=== PATIENT | female | born 1960 | race Caucasian/White ===

== ENCOUNTER 2020-03-25 07:50 | Inpatient (IN) | payer OTHER, SELFPAY ==
[~2020-03-25] VITALS: Ht 167.6 cm; Wt 111.8 kg
--- NOTE | 2020-03-25 08:10 | NUR ---
Placed in room 06 . Placed on playground monitor, blood pressure machine and pulse oximeter. To gown for exam. Side rails up.
--- NOTE | 2020-03-25 08:15 | NUR ---
Patient presented to ER C/O bilat leg edema & SOB. Patient Ambulatory to ER, A&Ox4, afebrile, bilat lower lwg 3+ edema, pain 08/16, denies N/V/D. Patient placed on instructor bridge & pulse-ox monitor and EKG complete, will continue to monitor
[2020-03-25 08:19] VITALS: BP_SYST 167
--- NOTE | 2020-03-25 08:44 | NUR ---
RT at bedside
--- NOTE | 2020-03-25 08:45 | NUR ---
ER Dr. CHRISTINA at bedside examining patient.
[2020-03-25] MEDS ORDERED: NITROGLYCERIN 1 INCH (GM) OINT. TP ONE (09:00)
[2020-03-25] MEDS ORDERED: KETOROLAC TROMETHAMINE 30 MG VIAL IVP ONE (09:00)
[2020-03-25] MEDS ORDERED: FUROSEMIDE 40 MG/4 ML VIAL IVP ONE (09:00)
[2020-03-25 09:11] LABS: BILIRUBIN,URINE 1+ (NEGATIVE); BLOOD, URINE 2+ (NEGATIVE); COLOR,URINE YELLOW (YELLOW); GLUCOSE,URINE NEGATIVE (NEGATIVE); KETONES,URINE TRACE (NEGATIVE); LEUKOCYTE ESTERASE ,URINE TRACE (NEGATIVE); NITRITE, URINE NEGATIVE (NEGATIVE); PH,URINE 6.5 (5.0-8.0); PROTEIN URINE 1+ (NEGATIVE)
[2020-03-25 09:12] LABS: UROBILINOGEN,URINE >=8 (0.2-1.0)
[2020-03-25 09:18] LABS: CLARITY/URINE SLIGHTLY CLOUDY (CLEAR)
[2020-03-25 09:22] LABS: BACTERIA,URINE FEW /HPF (None Seen); WBC,URINE 0-3 /HPF (0-3)
[2020-03-25 09:26] LABS: BASOPHILS % (AUTO) 0.4 % (0.0-2.0); EOSINOPHILS % (AUTO) 0.2 % (0.0-4.0); HEMATOCRIT 24.2 % (36-48); HEMOGLOBIN 7.2 g/dL (12.0-16.0); LYMPHOCYTES # (AUTO) 0.9 K/uL (1.0-5.5); MEAN CORPUSCULAR HEMOGLOBIN 22 pg (27-31); MEAN CORPUSCULAR HGB CONC 30 % (32-36); MEAN CORPUSCULAR VOLUME 74 fL (79.0-98.0); MONOCYTES # (AUTO) 0.9 K/uL (0.0-1.0); MONOCYTES % (AUTO) 13.2 % (1.7-9.3); NEUTROPHILS # (AUTO) 4.9 K/uL (1.8-7.7); NEUTROPHILS % (AUTO) 73.2 % (40.0-70.0); PLATELET COUNT (AUTO) 95 K/uL (130-430); RED BLOOD CELL COUNT(AUTO) 3.28 MIL/uL (4.2-6.2); RED CELL DISTRIBUTION WIDTH 23.8 % (9.0-15.0); WHITE BLOOD COUNT (AUTO) 6.6 K/uL (4.8-10.8)
--- NOTE | 2020-03-25 09:50 | NUR ---
PT AMBULATORY TO RESTROOM
--- NOTE | 2020-03-25 09:53 | NUR ---
Jak araceli in ED - 03/25/20 at 1001 by SDEDTD Patient presented to ER C/O bilat leg edema & SOB. Patient Ambulatory to ER, A&Ox4, afebrile, bilat lower lwg 3+ edema, pain 08/16, denies N/V/D. Patient placed on client finance analyst & pulse-ox monitor and EKG complete, will continue to monitor
--- NOTE | 2020-03-25 10:30 | NUR ---
PT AMBULATORY TO RESTROOM
[2020-03-25 10:36] LABS: C-REACTIVE PROTEIN QUANT 0.8 mg/dL (0-0.5)
[2020-03-25 10:37] LABS: INR 1.6 (0.8-1.2); PROTHROMBIN TIME 15.7 SECS (9.5-12.5)
[2020-03-25 10:43] LABS: ALBUMIN 2.1 g/dL (3.4-4.8); CALCIUM 8.5 mg/dL (8.4-11.0); CREATININE 0.73 mg/dL (0.55-1.30); POTASSIUM 3.5 mmol/L (3.5-5.1); TOTAL BILIRUBIN 2.5 mg/dL (0.0-1.0)
[2020-03-25 10:58] LABS: FIBRINOGEN 157 mg/dL (200-400)
--- NOTE | 2020-03-25 11:20 | NUR ---
ADMIT ORDERS FROM DR. RIVERA
[2020-03-25] MEDS ORDERED: LACTULOSE 20 GM/30 ML UDC PO ONE (11:30)
--- NOTE | 2020-03-25 11:30 | NUR ---
REQUESTED BED FROM [facility] AREA MANAGER
[2020-03-25 11:31] LABS: CKMB RELATIVE INDEX 3.5 (0.0-2.9); CREATINE KINASE MB 21.9 ng/mL (0-3.6)
--- NOTE | 2020-03-25 11:54 | NUR ---
Obtain consent for blood transfusion.
--- NOTE | 2020-03-25 12:35 | NUR ---
PT SITTING UP IN PAZ A&OX4
--- NOTE | 2020-03-25 13:15 | NUR ---
Rapid covid test sent to lab
[2020-03-25] MEDS ORDERED: IPRATROPIUM BROM 0.5 MG/2.5 ML VIAL.NEB (ATROVENT) INH PRN (13:45)
[2020-03-25] MEDS ORDERED: ALBUTEROL SULFATE 0.083% 2.5 MG/3 ML VIAL.NEB INH PRN (13:45)
--- NOTE | 2020-03-25 13:52 | NUR ---
Patient will be admitted to care of DR RIVERA. Admitted to TELE unit. Will go to room 120B. Belongings list completed. Complete and up to date summary report printed. SBAR report to be given at bedside with opportunity for questions. Transfer to TELE via ACLS protocol. Licensed nurse present. IV present no signs or symptoms of infiltration.
--- NOTE | 2020-03-25 14:04 | NUR ---
ADMISSION NOTE Received patient from ER via tracey, received report from JANKI LOZANO. Patient admitted with diagnosis of CIRRHOSIS/RULE OUT COVID 19. Patient oriented to hospital routine, call light, toileting and safety-patient verbalized understanding.
[2020-03-25 14:23] VITALS: BP_SYST 141
[2020-03-25 14:30] VITALS: BP_SYST 141
--- NOTE | 2020-03-25 14:35 | NUR ---
CONSULTATION REASON FOR CONSULT: LIZZY R/O TANNER CONSULTING PHYS: ANALISA ORDERED BY NICOLE [employer] IS COVERING [phone] PAGED
[2020-03-25] MEDS: cefTRIAXone 1 GM in D5W 50 ML IV SCH (15:27)
[2020-03-25] MEDS: AZITHROMYCIN 500 MG in NS 250 ML IV SCH (15:47)
--- NOTE | 2020-03-25 16:00 | NUR ---
Note Pt was admitted - admission assessment completed. Pt was given medications as ordered at this time. IV in right forearm 22g' intact and patent infusing IVPB at this time. Pt was instructed that she will be NPO. Pt given BSC - pt had Lactulose PO on arrival to floor. Pt has tele unit attached and intact on admission to floor. No needs noted at this time. Call light within reach.
[2020-03-25 16:03] VITALS: BP_SYST 141
--- NOTE | 2020-03-25 18:00 | NUR ---
Note Pt resting in bed with IVPB antibiotic infusing. No SOB/resp distress or pain/discomfort noted at this time. Tele unit attached and intact. Pt was checked on q1' and PRN all shift for needs and care. Pt was maintained with safety and isolation precautions. Pt's bed in low position all shift. No needs noted at this time. Call light within reach. Pt stable at this time. Pt on her cellphone all shift.
--- NOTE | 2020-03-25 18:25 | NUR ---
Note Pt's IVPB antibiotics completed at this time. IV in right forearm saline locked at this time.
--- NOTE | 2020-03-25 19:30 | NUR ---
REPORT Report received by day nurse, patient is aox4, on 02 2L NC, sinus rhythm in the heart monitor, fall and safety measures in place.
[2020-03-25] MEDS: ALBUTEROL SULFATE 0.083% 2.5 MG/3 ML VIAL.NEB INH SCH (20:23)
[2020-03-25] MEDS: IPRATROPIUM BROM 0.5 MG/2.5 ML VIAL.NEB (ATROVENT) INH SCH (20:23)
[2020-03-25 21:00] VITALS: BP_SYST 139
--- NOTE | 2020-03-25 21:25 | NUR ---
RN ROUNDS/BLOOD TRANSFUSION Patient awake, aox4, on 02 2L NC, no sob noted, vital signs stable, patient denies any nausea or pain at this time, IV line to right forearm intact and patent, saline locked, plan of care discussed with patient, started on 1 unit of PRBC, consent signed, patient had no reaction from first 15 min of blood transfusion. Vitals remained stable, oriented to call light for nurse assistance, fall and safety measures in place.
--- NOTE | 2020-03-25 22:43 | NUR ---
RN ROUNDS Patient resting quietly in bed, no sob noted, blood transfusion continues to infuse, call light within reach, safety and fall precautions in place.
[2020-03-26] VITALS: BP_SYST 131
--- NOTE | 2020-03-26 00:30 | NUR ---
BLOOD TRANSFUSION 1 unit of PRBC transfused, patients vital signs stable, patient denies any pain or discomfort at this time, remains on 02 2L NC, needs attended to, call light remains within reach, safety and isolation precautions in place.
[2020-03-26] MEDS: ALBUTEROL SULFATE 0.083% 2.5 MG/3 ML VIAL.NEB INH SCH ×4 (01:00→20:04)
[2020-03-26] MEDS: IPRATROPIUM BROM 0.5 MG/2.5 ML VIAL.NEB (ATROVENT) INH SCH ×4 (01:00→20:04)
--- NOTE | 2020-03-26 02:04 | NUR ---
RN ROUNDS Patient resting quietly in bed, breathing is even and unlabored, remains on 02L NC, call light within reach, safety and fall precautions in place.
--- NOTE | 2020-03-26 04:10 | NUR ---
RN ROUNDS Patient asleep, breathing is even and unlabored, remains on 02L NC, call light within reach, safety and fall precautions in place.
--- NOTE | 2020-03-26 06:26 | NUR ---
RN ROUNDS Patient continues to rest quietly in bed, breathing is even and unlabored, remains on 02 2L NC, IV line to right forearm intact and patent, saline locked, patient needs attended through out the shift, safety and isolation precautions maintained, will continue to monitor until report given to am nurse.
[2020-03-26 08:00] VITALS: BP_SYST 135
--- NOTE | 2020-03-26 08:00 | NUR ---
initial notes rec patient awake alert with hob elevated. ivl intact. no infiltration noted. resp easy and unlabored. no sob noted. bed to the lowest position and side rails up and locked. call light withn reached. will continue to monitor patient.
--- NOTE | 2020-03-26 08:12 | NUR ---
OPENING NOTES REPORT RECEIVED, AOX4 RESPIRATIONS EVEN AND UNLABORED ON ROOM AIR, FALL AND SAFETY PRECAUTIONS IN PLACE. PATIENT STATES IV TO RIGHT FOREARM IN TENDER, IV INFILTRATED. PATIENT UPSET THAT SHE HAS NO ALTERNATE IV SITE SHE STATES MANY NURSES HAVE STUCK ME AND STILL NO ACCESS. SCHEDULED MEDS HELD DUE TO NO IV ACCESS. CHARGE NURSE MADE AWARE. Addendum: 03/27/20 at 0818 by Sari Lombardi RN CORRECT TIME OF NOTE IS 03/26/202012
[2020-03-26] MEDS ORDERED: FUROSEMIDE 20 MG/2 ML VIAL ONE (09:50)
--- NOTE | 2020-03-26 10:20 | NUR ---
rounds due meds were given and tamela well. seen by dr reynolds and with order. call light within reached.
[2020-03-26] MEDS ORDERED: FUROSEMIDE 20 MG/2 ML VIAL IVP SCH ×2 (11:45→21:00)
[2020-03-26 12:00] VITALS: BP_SYST 138
--- NOTE | 2020-03-26 12:00 | NUR ---
rounds dr river was updated re patient condition. pt on full liquid now as per pmd. denies pain bed ti the lowest position
[2020-03-26] MEDS ORDERED: FUROSEMIDE 20 MG/2 ML VIAL IVP ONE (12:15)
[2020-03-26] MEDS: AZITHROMYCIN 500 MG in NS 250 ML IV SCH (13:30)
--- NOTE | 2020-03-26 13:48 | NUR ---
Social Service Note: PRE PRESS MANAGER received referral to see pt. PRE PRESS MANAGER has attempted to speak with pt via phone x2. PRE PRESS MANAGER will continue to attempt to reach pt.
--- NOTE | 2020-03-26 14:00 | NUR ---
rounds abx due was given and tamela well. no sob noted. call light withn reached.
[2020-03-26] MEDS: cefTRIAXone 1 GM in D5W 50 ML IV SCH (15:00)
--- NOTE | 2020-03-26 16:42 | NUR ---
NEGATIVE FOR COVID. MD NGO INFORMED AND ORDER RECEIVED TO D/C ISOLATION.
--- NOTE | 2020-03-26 17:45 | NUR ---
RECEIVED PT FROM BLAKE REYNOLDS, PT IS AAOX4, BRP, NO C/O PAIN, NO SOB. TRANSFERRED FROM ROOM 120 TO ROOM 109 DUE TO PT IS COVID NEGATIVE.
[2020-03-26 17:57] VITALS: BP_SYST 130
--- NOTE | 2020-03-26 18:46 | NUR ---
CLOSING NOTES PT HAS BEEN STABLE SINCE ARRIVAL TO ROOM. NO C/O PAIN, NO SOB. IV ANTIBIOTICS STILL RUNNING. WILL ENDORSE TO NIGHT NURSE.
[2020-03-26 20:00] VITALS: BP_SYST 133
--- NOTE | 2020-03-26 21:00 | NUR ---
IV ACCESS EDUCATED PATIENT THAT IV NURSE FROM THE ER WILL ATTEMPT TO START A NEW IV. PATIENT AGREED TO THIS ATTEMPT. AWAITING ER NURSE.
--- NOTE | 2020-03-26 23:00 | NUR ---
IV ACCESS STILL AWAITING ER NURSE, THIS RN ATTEMPTED TO PLACE AND IV WITH PATIENT CONSENT HOWEVER WAS UNSUCCESSFUL. CHARGE NURSE MADE AWARE. PATIENT DOES NOT AGREE TO ALTERNATIVES AT THIS TIME DESPITE EDUCATION ON THE IMPORTANCE OF AN IV ACCESS. PATIENT CONTINUES TO REFUSE.
[2020-03-27] VITALS: BP_SYST 131
[2020-03-27] MEDS: ALBUTEROL SULFATE 0.083% 2.5 MG/3 ML VIAL.NEB INH SCH (01:25)
[2020-03-27] MEDS: IPRATROPIUM BROM 0.5 MG/2.5 ML VIAL.NEB (ATROVENT) INH SCH (01:25)
--- NOTE | 2020-03-27 03:00 | NUR ---
RN ROUNDS PATIENT ASLEEP RESTING WITH NO SIGNS OF DISTRESS AT THIS TIME.
--- NOTE | 2020-03-27 06:50 | NUR ---
CLOSING NOTE PATIENT CONTINUES TO REFUSE ATTEMPT FOR NURSE TO REPLACE IV. PROVIDED ADDITIONAL EDUCATION ON IMPORTANCE OF IV ACCESS. WILL ENDORSE TO AM NURSE FOR POSSIBLE ALTERNATIVES FOR PLACEMENT. OTHERWISE PATIENT RESTING COMFORTABLY IN BED WHILE WATCHING TV. ALL FALL AND SAFETY MEASURES IN PLACE. BED LOCKED IN LOWEST POSITION WITH CALL LIGHT IN REACH. PATIENT STABLE. WILL CONTINUE TO MONITOR UNTIL ENDORSED TO AM NURSE.
--- NOTE | 2020-03-27 07:40 | NUR ---
alert, oriented, appeared upset " they stuck me so many times, still no access", meds on hold right now, secondary to no access, AND patient did not allow another attempt. Charge Nurse made aware, for another solution.
[2020-03-27 08:00] VITALS: BP_SYST 154
--- NOTE | 2020-03-27 10:18 | NUR ---
with the aid of Vein Finder, author did attempt once, but failed. Explained the next step would be PICC line insertion, " i know what it is, no need for explaination". Talked to the attending, awaiting PICC insertion alert, oriented, asking for breathing tx, given denied any pain, EXCEPT " too much fluid in my stomach", the abdomen very distended, became sob easily on slight exertion. Attending on round, awaiting plan of care for this patient
[2020-03-27 11:24] LABS: BASOPHILS % (AUTO) 0.3 % (0.0-2.0); EOSINOPHILS # (AUTO) 0.1 K/uL (0.0-0.4); EOSINOPHILS % (AUTO) 1.9 % (0.0-4.0); HEMATOCRIT 26.5 % (36-48); HEMOGLOBIN 7.7 g/dL (12.0-16.0); LYMPHOCYTES # (AUTO) 1.2 K/uL (1.0-5.5); LYMPHOCYTES % (AUTO) 22.9 % (20.5-51.5); MEAN CORPUSCULAR HEMOGLOBIN 23 pg (27-31); MEAN CORPUSCULAR HGB CONC 29 % (32-36); MEAN CORPUSCULAR VOLUME 77 fL (79.0-98.0); MONOCYTES # (AUTO) 0.9 K/uL (0.0-1.0); MONOCYTES % (AUTO) 17.7 % (1.7-9.3); NEUTROPHILS # (AUTO) 2.9 K/uL (1.8-7.7); NEUTROPHILS % (AUTO) 57.2 % (40.0-70.0); PLATELET COUNT (AUTO) 77 K/uL (130-430); RED BLOOD CELL COUNT(AUTO) 3.43 MIL/uL (4.2-6.2); RED CELL DISTRIBUTION WIDTH 24.5 % (9.0-15.0); WHITE BLOOD COUNT (AUTO) 5.1 K/uL (4.8-10.8)
--- NOTE | 2020-03-27 11:27 | NUR ---
consent for PICC line, signed by the patient, who is alert, oriented, and appropriate. US abdomen ordered, advised NOT to eat lunch until after the us done. verbalized understanding
[2020-03-27 11:36] LABS: CREATININE 0.67 mg/dL (0.55-1.30); POTASSIUM 3.5 mmol/L (3.5-5.1)
[2020-03-27 11:42] LABS: ALBUMIN 2.1 g/dL (3.4-4.8); TOTAL BILIRUBIN 2.3 mg/dL (0.0-1.0)
[2020-03-27 12:10] VITALS: BP_SYST 147
[2020-03-27 13:01] LABS: TOTAL IRON BIND. CAPACITY 397 ug/dL (250-450)
[2020-03-27 16:12] VITALS: BP_SYST 152
--- NOTE | 2020-03-27 18:12 | NUR ---
being NPO since called by US personnel, 1529 again US personnel called, to make sure patient NPO for US abdomen, still US not done upset, " I am hungry, I will be eating right now, regardless. eating her dinner Full liquid Still awaiting PICC line insertion
[2020-03-27 19:00] VITALS: BP_SYST 145
--- NOTE | 2020-03-27 19:15 | NUR ---
change of shift.pt.presents quiescent affect;calm,resting viewing tv programming.pt.to submit to the placement of picc line.consent signed.per the pt. pt.presents no c/o pain,nausea.general status stable.respiratory status stable;unlabored@room air.call light/telephone w/n reach of the pt.
[2020-03-27 20:00] VITALS: BP_SYST 145
--- NOTE | 2020-03-27 20:00 | NUR ---
pt.assessed.v/s assessed values w/in normal limits.no c/o pain,nausea.pt.presents diet status:npo:us;abdomen re-scheduled for monday:03/28/20. pt.had eatened the dinner tray test results would be compromised.awaiting the arrival of the picc line nsg.pt.capable to reposition self.call light/telephone w/in reach of the pt.
--- NOTE | 2020-03-27 21:00 | NUR ---
2100pmedication lasix held.no iv access@this hour.i am awaiting the arrival of the picc line valreia.pt.apprised of the lasix administration hold.
[2020-03-27] MEDS: FUROSEMIDE 20 MG/2 ML VIAL IVP SCH (21:40)
--- NOTE | 2020-03-27 22:00 | NUR ---
pt.assessed.picc line placement attended to.cxr confirmed placement;picc to be utilized.i have re-connected the iv fluids:ns-flush i administered lasix;40mg ivp.i have apprised the pt.that i am to measure the urine volume post the administration of the lasix. i have placed the hat recepticle.pt.capable to reposition self.call light/telephone w/in reach of the pt.
--- NOTE | 2020-03-28 | NUR ---
pt.assessed.v/s assessed values w/in normal limits.no c/o pain,nausea.pt.to remain npo diet status 2/t us abdomen:in the am: 03/28/20. picc line intact;patent iv fluids ns;flush infusing.pt.utilized the restroom gait assessed w/in normal limits.general status stable.respiratory status stable;unlabored.call light/telephone w/in reach of the pt.
[2020-03-28 00:12] VITALS: BP_SYST 146
--- NOTE | 2020-03-28 02:00 | NUR ---
pt.assessed.pt.presents quiescent affect;calm,somnolent.picc line intact;patent iv lock.general status stable.respiratory status stable;unlabored.pt.capable to reposition self.call light/telephone w/in reach of the pt.
--- NOTE | 2020-03-28 04:00 | NUR ---
pt.assessed pt.presents quiescent affect;calm,somnolent.general status stable.respiratory status stable.unlabored. pt.capable to reposition self.call light/telephone w/in reach of the pt.
--- NOTE | 2020-03-28 06:30 | NUR ---
pt.assessed.pt.presents quiescent affect;calm,viewing programming via telephone.no c/o pain,nausea.picc line intact;patent. pt.presented copious amount of urine volume as of 1900p-0700a.pt.capable to reposition self.general status stable.respiratory status stable;unlabored.call light w/in reach of the pt.
[2020-03-28 08:00] VITALS: BP_SYST 148
[2020-03-28] MEDS: FUROSEMIDE 20 MG/2 ML VIAL IVP SCH ×2 (09:43→16:40)
[2020-03-28] MEDS ORDERED: SPIRONOLACTONE 50 MG TABLET (ALDACTONE) PO ONE (11:15)
[2020-03-28 16:00] VITALS: BP_SYST 133
--- NOTE | 2020-03-28 17:31 | NUR ---
alert, oriented, dangling, still on full liquid, seen by attending this am, no new orders written, except some lab works in am seen by pulmonary, brought up LASIX, schedule should be modified. Instead of getting it at 0900 and 2100, patient would like to have it at 0500 and 1700. Lasix ivp given today , during the am shift, and at 1700 this evening. Mentioned at home she has been taking ALDACTONE, which is resumed for her. no sob noted, on RA, sat around 95-96%, denied dyspnea.
--- NOTE | 2020-03-28 19:50 | NUR ---
ROUNDS PATIENT SITTING UP IN BED, WATCHING TV, VITALS STABLE. DENIES ANY PAIN AND DISCOMFORT AT THIS TIME. ASSESSMENT DONE AND DOCUEMNTED. SEE FLOWSHEET. NEEDS ATTENDED TO. SAFETY AND FALL MEASURES IN PLACED. CALL LIGHT PLACED WITHIN REACH.
[2020-03-28 20:00] VITALS: BP_SYST 143
--- NOTE | 2020-03-28 22:14 | NUR ---
PATIENT RESTING: Patient resting quietly. No acute distress noted. Vital signs within normal range.
--- NOTE | 2020-03-29 00:12 | NUR ---
ROUNDS PATIENT ASLEEP, NO SOB NOR PAIN AND DISCOMFORT NOTED. WILL CONTINUE TO MONITOR.
[2020-03-29 00:22] VITALS: BP_SYST 151
--- NOTE | 2020-03-29 02:13 | NUR ---
ROUNDS PATIENT ASLEEP, RESPIRATIONS EVEN AND UNLABORED, WILL CONTINUE TO MONITOR.
--- NOTE | 2020-03-29 04:13 | NUR ---
ROUNDS PATIENT SLEEPING, NO SOB NOTED, VITALS STABLE. WILL CONTINUE TO MONITOR.
[2020-03-29] MEDS: FUROSEMIDE 20 MG/2 ML VIAL IVP SCH (06:16)
--- NOTE | 2020-03-29 06:50 | NUR ---
CLOSING NOTES PATIENT AWAKE, WATCHING TV, NO COMPLAINTS AT THIS TIME. NEEDS ATTENDED TO. SAFETY MEASURES MAINTAINED. CALL LIGHT PLACED WITHIN REACH.
[2020-03-29 07:14] LABS: ALBUMIN 2.2 g/dL (3.4-4.8); CALCIUM 8.3 mg/dL (8.4-11.0); CREATININE 0.69 mg/dL (0.55-1.30); POTASSIUM 3.4 mmol/L (3.5-5.1); TOTAL BILIRUBIN 2.9 mg/dL (0.0-1.0)
[2020-03-29 07:16] LABS: BASOPHILS % (AUTO) 0.2 % (0.0-2.0); EOSINOPHILS # (AUTO) 0.1 K/uL (0.0-0.4); EOSINOPHILS % (AUTO) 1.4 % (0.0-4.0); HEMATOCRIT 25.7 % (36-48); HEMOGLOBIN 7.8 g/dL (12.0-16.0); LYMPHOCYTES # (AUTO) 1.2 K/uL (1.0-5.5); LYMPHOCYTES % (AUTO) 25.2 % (20.5-51.5); MEAN CORPUSCULAR HEMOGLOBIN 23 pg (27-31); MEAN CORPUSCULAR HGB CONC 30 % (32-36); MEAN CORPUSCULAR VOLUME 77 fL (79.0-98.0); MONOCYTES # (AUTO) 1.1 K/uL (0.0-1.0); NEUTROPHILS # (AUTO) 2.5 K/uL (1.8-7.7); NEUTROPHILS % (AUTO) 50.2 % (40.0-70.0); PLATELET COUNT (AUTO) 92 K/uL (130-430); RED BLOOD CELL COUNT(AUTO) 3.35 MIL/uL (4.2-6.2); RED CELL DISTRIBUTION WIDTH 24.9 % (9.0-15.0); WHITE BLOOD COUNT (AUTO) 4.9 K/uL (4.8-10.8)
[2020-03-29 08:00] VITALS: BP_SYST 137
[2020-03-29] MEDS ORDERED: SPIRONOLACTONE 50 MG TABLET (ALDACTONE) PO SCH (09:00)
--- NOTE | 2020-03-29 10:03 | NUR ---
alert , oriented, dangling. Did not want breakfast, just a few apple juices offered to her. Denied dyspnea, on ra, sat 95-96%. " L legs , swellling went down, vs the R one, she said. On both Lasix and Aldactone, bilateral lower extremities , noticeable swelling, about 20lbs plus. Advised her to restrict fluid to 1.5l daily, if possible. Denied dyspnea, no sob noted. seen by pulmonary , DOPPLER both LEs ordered.
[2020-03-29] MEDS ORDERED: FURO-149 PO (12:04)
[2020-03-29] MEDS ORDERED: SPIR50TA PO (12:04)
[2020-03-29 13:29] VITALS: BP_SYST 137
--- NOTE | 2020-03-29 13:44 | NUR ---
alert, oriented, and appropriate, dangling, no complaint offered at this time. Seen by Pulmonary, dr Basurto. Doppler of bilateral LEs ordered. Doppler result presented to the attending, patient is discharged to home, RX called in by the physician, and patient to follow up with PCP in one week. Advised to restrain self to cardiac, less salt if possible, due to much swelling on her lower extremities. Verbalized understanding, patient is discharged to home. PICC out at this time.
[2020-03-29] MEDS ORDERED: FUROSEMIDE 40 MG TABLET PO SCH (21:00)
== END 2020-03-29 14:30 | disposition home or self-care (01) | DRG 441 ==
LOC: SED 07:50 → STU 12:05 → SMU 03-27 10:49
PROVIDERS: ADMIT Internal Medicine Hospice and Palliative Medicine; ATTEND Internal Medicine Hospice and Palliative Medicine
PROC: 30233N1 Transfusion of Nonautologous Red Blood Cells into Peripheral Vein, Percutaneous Approach (ICD-10-PCS; principal; 2020-03-25)
PROC: 02HV33Z Insertion of Infusion Device into Superior Vena Cava, Percutaneous Approach (ICD-10-PCS; 2020-03-28)
DX: K72.90 Hepatic failure, unspecified without coma (principal); J81.0 Acute pulmonary edema; J96.01 Acute respiratory failure with hypoxia; K74.60 Unspecified cirrhosis of liver; B19.20 Unspecified viral hepatitis C without hepatic coma; Z20.828 Contact with and (suspected) exposure to other viral communicable diseases; I78.1 Nevus, non-neoplastic; I89.0 Lymphedema, not elsewhere classified; D64.9 Anemia, unspecified
CPT/HCPCS: 36415; 36430; 36600; 71045; 76700-TC; 80053; 81000-TC; 82140-TC; 82550-TC; 82553-TC; 82728; 82803-TC; 83540-TC; 83550-TC; 83605; 83615-TC; 83735-TC; 83880; 84484; 85025; 85379; 85384-TC; 85610-TC; 85730-TC; 86140; 86886; 86900; 86901; 86920; 87040-TC; 87086; 93005; 93970; 94640; 94760; 96374; 96375; 99291; C1751; G0378; J0456; J0696; J1885; J1940; J7040; J7050; J7060; J7613; P9021; U0003-CS

== ENCOUNTER 2021-02-24 07:40 | Emergency (ER) | payer OTHER, SELFPAY ==
[~2021-02-24] VITALS: Ht 167.6 cm; Wt 136.1 kg
[2021-02-24 07:40] VITALS: BP_SYST 112
[~2021-02-24 07:40] MED LIST: FURO-149 PO; SPIR50TA PO
[2021-02-24] MEDS ORDERED: NACL 0.9% 1,000 ML IV ONE (07:45)
[2021-02-24 08:33] LABS: BASOPHILS % (AUTO) 0.2 % (0.0-2.0); HEMATOCRIT 26.7 % (36-48); HEMOGLOBIN 8.4 g/dL (12.0-16.0); LYMPHOCYTES # (AUTO) 0.5 K/uL (1.0-5.5); LYMPHOCYTES % (AUTO) 15.7 % (20.5-51.5); MEAN CORPUSCULAR HEMOGLOBIN 32 pg (27-31); MEAN CORPUSCULAR HGB CONC 32 % (32-36); MEAN CORPUSCULAR VOLUME 102 fL (79.0-98.0); MONOCYTES # (AUTO) 0.6 K/uL (0.0-1.0); MONOCYTES % (AUTO) 20.8 % (1.7-9.3); NEUTROPHILS # (AUTO) 1.9 K/uL (1.8-7.7); NEUTROPHILS % (AUTO) 63.3 % (40.0-70.0); PLATELET COUNT (AUTO) 96 K/uL (130-430); RED BLOOD CELL COUNT(AUTO) 2.61 MIL/uL (4.2-6.2); RED CELL DISTRIBUTION WIDTH 32.9 % (9.0-15.0)
[2021-02-24 08:42] LABS: ANION GAP 10 (5-15); CALCIUM 7.5 mg/dL (8.4-11.0); CHLORIDE 106 mmol/L (98-107); CREATININE 0.63 mg/dL (0.55-1.30); GLUCOSE 64 mg/dL (70-99); POTASSIUM 3.4 mmol/L (3.5-5.1); SODIUM SERUM 141 mmol/L (136-145); UREA NITROGEN, BLOOD 2 mg/dL (8-21)
[2021-02-24 08:43] LABS: GFR AFRICAN AMERICAN 124 mL/min (>90)
[2021-02-24 08:51] LABS: BILIRUBIN,URINE 1+ (NEGATIVE); BLOOD, URINE 2+ (NEGATIVE); COLOR,URINE YELLOW (YELLOW); GLUCOSE,URINE NEGATIVE (NEGATIVE); KETONES,URINE TRACE (NEGATIVE); LEUKOCYTE ESTERASE ,URINE NEGATIVE (NEGATIVE); NITRITE, URINE NEGATIVE (NEGATIVE); PH,URINE 5.5 (5.0-8.0); PROTEIN URINE NEGATIVE (NEGATIVE)
[2021-02-24 08:54] LABS: ALANINE AMINOTRANSFERASE 8 U/L (12-78); ALBUMIN 1.3 g/dL (3.4-4.8); ALCOHOL, BLOOD 5 mg/dL (<10); ASPARTATE AMINOTRANSFERASE 44 U/L (10-37); TOTAL BILIRUBIN 2.7 mg/dL (0.0-1.0)
[2021-02-24 08:58] LABS: ACETAMINOPHEN < 1 ug/mL (1-30)
[2021-02-24 08:59] LABS: CLARITY/URINE SLIGHTLY CLOUDY (CLEAR)
[2021-02-24 09:05] LABS: BARBITURATE, URINE NEGATIVE (NEG <=200); BENZODIAZEPINE, URINE NEGATIVE (NEG <=150); CANNABINOID, URINE NEGATIVE (NEG <=50); COCAINE, URINE NEGATIVE (NEG <=150); METHAMPHETAMINES SCREEN,URINE NEGATIVE (NEG <=500); OPIATE, URINE NEGATIVE (NEG <=100); PHENCYCLIDINE SCREEN,URINE NEGATIVE (NEG <=25); UR TRICYCLIC ANTIDEPRESSANTS NEGATIVE (NEG <=300); URINE AMPHETAMINE NEGATIVE (NEG <=500); URINE METHADONE POSITIVE (NEG <=200); URINE OXYCODONE SCREEN NEGATIVE (NEG <=100); URINE PROPOXYPHENE SCREEN NEGATIVE (NEG <=300)
[2021-02-24 09:19] LABS: BACTERIA,URINE FEW /HPF (None Seen); WBC,URINE 0-3 /HPF (0-3)
[2021-02-24 09:20] LABS: CKMB RELATIVE INDEX 1.2 (0.0-2.9); CREATINE KINASE MB 4.2 ng/mL (0-3.6)
[2021-02-24 09:20] LABS: HYALINE CASTS, URINE 0-10 /LPF (None Seen)
[2021-02-24] MEDS ORDERED: MANNITOL 25% 12.5GM/50 ML VIAL IV ONE (10:30)
[2021-02-24] MEDS ORDERED: MANNITOL 20% IV ONE (11:00)
[2021-02-24] MEDS ORDERED: DEXTROSE 50% JECT 50 ML DISP.SYRIN ONE (11:21)
[2021-02-24 11:37] VITALS: BP_SYST 139
[2021-02-24] MEDS ORDERED: DEXTROSE 50% JECT 50 ML DISP.SYRIN IVP ONE (12:00)
== END 2021-02-24 11:26 | disposition short-term general hospital (02) ==
LOC: SED 07:40
DX: I62.9 Nontraumatic intracranial hemorrhage, unspecified (principal); R40.4 Transient alteration of awareness; E16.2 Hypoglycemia, unspecified; Z79.899 Other long term (current) drug therapy; Z20.822 Contact with and (suspected) exposure to COVID-19
CPT/HCPCS: 31500; 36415; 36600; 70450; 71045; 76376; 80053; 80307; 81000; 82140; 82550; 82553; 82803; 82962; 83605; 83880; 84484; 85025; 85610; 85730; 87040; 87081; 87426; 93005; 94640; 96361; 96365; 96375; 99285; G0480; G0482; J2150; J7030; 94002